=== PATIENT | male | born 1985 | race Caucasian/White ===

== ENCOUNTER 2018-04-30 09:03 | Emergency (ER) | payer OTHER ==
[~2018-04-30] VITALS: Ht 167.6 cm; Wt 68.2 kg
[2018-04-30 11:19] VITALS: BP 140/72
== END 2018-04-30 11:38 | disposition home or self-care (01) ==
LOC: EMS 09:04
DX: G47.00 Insomnia, unspecified (principal); F11.90 Opioid use, unspecified, uncomplicated; F12.90 Cannabis use, unspecified, uncomplicated; F15.90 Other stimulant use, unspecified, uncomplicated; F17.210 Nicotine dependence, cigarettes, uncomplicated
CPT/HCPCS: 99406